=== PATIENT | female | born 1975 ===

== ENCOUNTER 2016-11-04 09:23 | Day surgery (SDC) | payer OTHER ==
[2016-10-29 08:39] VITALS: BMI 33.3
[2016-11-04] MEDS ORDERED: ceFAZolin IV 2 gm in Dextrose 1 GM/50 ML BAG IVPB ONE (12:07)
[2016-11-04] MEDS: Bupivacaine-Epi 0.25%-1:200,000 PF Inj ONE ×3 (12:12→13:59)
[2016-11-04] MEDS: Lidocaine 1% Inj (20ml) ONE ×3 (12:13→13:59)
[2016-11-04] MEDS ORDERED: Midazolam 2 MG/2 ML VIAL ONE (12:46)
[2016-11-04] MEDS ORDERED: Propofol 10 mg/ml Inj (20 ML) ONE (12:46)
[2016-11-04] MEDS ORDERED: Rocuronium 10 mg/ml (5 ml) ONE ×2 (12:47→14:02)
[2016-11-04] MEDS ORDERED: Succinylcholine Chloride 20 mg/ml Syr (5 ml) IV ONE (12:47)
[2016-11-04] MEDS ORDERED: Lactated Ringer's 1,000 ML IV ONE (12:53)
[2016-11-04] MEDS ORDERED: HYDROmorphone 0.5 mg/0.5 ml ISec IVP PRN (13:03)
[2016-11-04] MEDS ORDERED: Neostigmine Methylsulfate 3mg/3ml Syringe IV ONE (14:02)
--- NOTE | 2016-11-04 14:21 | PCM.SURG1 ---
Surgeon's Initial Post Op Note - Surgeon's Notes Surgeon: Desiree Foster MD Dross Skimmer: Jennifer Young PGY-1; Nataliya Anderson OMS-III Type of Anesthesia: General Endo Pre-Operative Diagnosis: Multiple sebaceous cysts over scalp Operative Findings: See op report Post-Operative Diagnosis: Multiple sebaceous cysts over scalp Operation Performed: Excision of sebaceous cyst from left occipital, mid occipital, mid parietal, and mid frontal areas of scalp Specimen/Specimens Removed: Left occipital sebaceous cyst and cystic sac contents, mid occipital sebaceous cyst and cystic sac contents, mid parietal sebaceous cyst and cystic sac contents, and mid frontal sebaceous cyst and cystic sac contents Estimated Blood Loss: EBL {In ML}: 20 Blood Products Given: N/A Drains Used: No Drains Post-Op Condition: Good Date of Surgery/Procedure: 11/04/16 Time of Surgery/Procedure: 14:21
[2016-11-04] MEDS ORDERED: Oxycodone/Acetaminophen 5/325 mg Tab PO PRN (15:30)
[2016-11-04 15:38] VITALS: BP 117/68; PULSE 88; RESP 18; TEMP 97.6; O2SAT 100
--- NOTE | 2016-11-05 02:01 | OP ---
PROCEDURE DATE: 11/04/2016 PREOPERATIVE DIAGNOSES: Multiple sebaceous cyst of the scalp in: 1. Left occipital region 4 x 4 cm size. 2. Midoccipital 2 x 2 cm size. 3. Mid parietal 3 x 3 cm size. 4. Mid frontal 2 x 2 cm size. POSTOPERATIVE DIAGNOSIS: Multiple sebaceous cyst of the scalp in: 1. Left occipital region 4 x 4 cm size. 2. Midoccipital 2 x 2 cm size. 3. Mid parietal 3 x 3 cm size. 4. Mid frontal 2 x 2 cm size. PROCEDURE: 1. Excision of sebaceous cyst of left occipital area. 2. Layer closure of the bone of left occipital wound 4 x2 cm size. 3. Excision of sebaceous cyst of midoccipital 2 x 2 cm size. 4. Excision of sebaceous cyst of mid parietal region 3 x 3 cm size. 5. Excision of sebaceous cyst of the mid frontal region 2 x 2 cm size. SURGEON: Dr. Chas Foster. DETECTIVE: Jennifer Young, PGY-1 resident. TYPE OF ANESTHESIA: General endotracheal tube anesthesia. ESTIMATED BLOOD LOSS: Around 20 mL. COMPLICATION: None DRAINS: None. PATHOLOGY: 1. Left occipital. 2. Midoccipital. 3. Mid parietal. 4. Mid frontal sebaceous cyst was sent for the pathology. INTRAOPERATIVE FINDINGS: The patient had multiple sebaceous cyst of the scalp of variable size and locations. DESCRIPTION OF PROCEDURE: This is a 41-year-old female who was diagnosed with multiple sebaceous cyst of the scalp of variable size and the patient was consented for excision of the sebaceous cyst, brought to the OR, placed on the operating table. After induction of the anesthesia, the patient was placed in right lateral position and left occipital as well as mid scalp area was prepped and draped in usual sterile fashion and the elliptical incision was made on the left occipital sebaceous cyst. Upper and lower flap was created. The large sebaceous cyst was completely excised and sent off the table for the pathology. There was a proper hemostasis in each and every part of the procedure. Now the complex layered closure of the wound was done due to the excessive skin. The excessive skin was completely excised and the wound was closed in multiple layers to prevent the space and subcutaneous with 2-0 Vicryl and the skin with 3-0 nylon interrupted suture. Now, incision was made on the midoccipital and mid parietal and midfrontal scalp cyst and upper and lower flap was created. The 2 x 2 cm midoccipital sebaceous cyst was completely excised and wound was irrigated and wound was closed in 1 layer with 3-0 nylon, then the mid parietal sebaceous cyst was also completely excised and the wound was irrigated and closed with 3-0 nylon and midfrontal sebaceous cyst was completely excised and the wound irrigated and wound was closed with 3-0 nylon and dry sterile dressing was applied. The patient tolerated the procedure well. Count of the instrument was correct. There was no apparent complication. Chas Foster MD MTDDrew
== END 2016-11-04 15:58 | disposition home or self-care (01) ==
LOC: C.SDS 09:23
PROVIDERS: ATTEND Surgery Surgical Critical Care
DX: L72.3 Sebaceous cyst (principal); L72.12 Trichodermal cyst; L72.11 Pilar cyst